=== PATIENT | male | born 1975 | race Caucasian/White ===

== ENCOUNTER 2022-01-30 19:42 | Emergency (ER) | payer OTHER ==
[~2022-01-30] VITALS: Ht 167.6 cm; Wt 72.6 kg
[~2022-01-30 19:42] MED LIST: Augmentin 875-1 EACH PO; BUSP5 PO; CITA20 PO; CRUTCH2 USE; DOXY100 PO; Flagyl500 MG PO; HYDACE5 PO; IBUP600 PO; IBUP800 PO; LORA1 PO; MONDOXYNE NL100 MG PO; Norco 5-325 Ta1 EACH PO; Nystop60 GM TP; OXYACE5T PO; PROM25 PO; RXOXYACE PO
== END 2022-01-30 20:55 | disposition home or self-care (01) ==
LOC: ER 19:42
DX: S63.502A Unspecified sprain of left wrist, initial encounter (principal); F17.210 Nicotine dependence, cigarettes, uncomplicated; Z79.899 Other long term (current) drug therapy; W17.89XA Other fall from one level to another, initial encounter
CPT/HCPCS: 73110